=== PATIENT | female | born 1985 | race Caucasian/White ===

== ENCOUNTER → 2016-12-10 | Outpatient (CLI) | payer OTHER ==
[~2016-12-10] MED LIST: ALBU1AER9 INH; HYDR-3419 PO
[2016-12-10 15:06] LABS: URINE APPEARANCE CLOUDY (CLEAR); URINE BILIRUBIN NEG (NEG); URINE COLOR YELLOW; URINE EPITHELIAL CELL AUTO 0-5 /lpf (0-5); URINE NITRITE NEG (NEG); URINE PH 8.5 (4.5-7.5); URINE SPECIFIC GRAVITY 1.017 (1.000-1.030); UROBILINOGEN NEG (NEG)
[2016-12-10 15:12] LABS: MANUAL MICROSCOPIC REQUIRED? NO; REVIEW REQ? NO
== END | disposition home or self-care (01) ==
LOC: C.LAB1850 12:38
PROVIDERS: ATTEND Obstetrics & Gynecology
DX: R30.0 Dysuria (principal); R35.0 Frequency of micturition

== ENCOUNTER → 2017-04-24 | Outpatient (CLI) | payer BC, OTHER ==
[2017-04-24 17:35] LABS: URINE APPEARANCE CLEAR (CLEAR); URINE BILIRUBIN NEG (NEG); URINE COLOR YELLOW; URINE NITRITE NEG (NEG); URINE PH 6.5 (4.5-7.5); URINE SPECIFIC GRAVITY 1.018 (1.000-1.030); UROBILINOGEN NEG (NEG)
[2017-04-24 17:41] LABS: MANUAL MICROSCOPIC REQUIRED? NO; REVIEW REQ? NO
== END | disposition home or self-care (01) ==
LOC: C.LABSPEC 16:15
PROVIDERS: ATTEND Obstetrics & Gynecology
DX: Z34.81 Encounter for supervision of other normal pregnancy, first trimester (principal)

== ENCOUNTER → 2017-05-02 | Outpatient (CLI) | payer BC ==
[2017-05-02 16:34] LABS: BASO % 0.3 %; BASO ABS # 0.03 K/uL (0-0.2); COMPLETE YES; EOS % 1.7 %; HEMATOCRIT 39.9 % (37-47); IG% 0.3 %; LYMPH % 22.9 %; MEAN CELL VOLUME 84.4 fL (80-100); MEAN CORPUSCULAR HEMOGLOBIN 29.2 pg (25-34); MEAN CORPUSCULAR HGB CONC 34.6 g/dl (32-36); MEAN PLATELET VOLUME 9.8 fL (7.4-10.4); MONO % 7.8 %; PLATELET COUNT 215 K/uL (130-400); RED BLOOD COUNT 4.73 M/uL (4.2-5.4); WHITE BLOOD COUNT 8.73 K/uL (4.8-10.8)
[2017-05-06 01:31] LABS: CHLAMYDIA TRACH RNA*** NOT DETECTED (NOT DETECTED); GC (NEIS GONORRHOEAE)RNA** NOT DETECTED (NOT DETECTED)
== END | disposition home or self-care (01) ==
LOC: C.LAB 15:23
PROVIDERS: ATTEND Obstetrics & Gynecology
DX: Z34.81 Encounter for supervision of other normal pregnancy, first trimester (principal)

== ENCOUNTER → 2017-05-02 | Outpatient (CLI) | payer BC | END | disposition home or self-care (01) | LOC: C.PAPS 17:24 | PROVIDERS: ATTEND Obstetrics & Gynecology | DX: Z01.419 Encounter for gynecological examination (general) (routine) without abnormal findings (principal) ==

== ENCOUNTER → 2017-06-27 | Outpatient (CLI) | payer BC ==
[2017-06-27 12:22] LABS: GTGD 50 Grams
== END | disposition home or self-care (01) ==
LOC: C.LAB1850 11:31
PROVIDERS: ATTEND Obstetrics & Gynecology
DX: Z34.82 Encounter for supervision of other normal pregnancy, second trimester (principal); Z3A.00 Weeks of gestation of pregnancy not specified

== ENCOUNTER → 2017-09-26 | Outpatient (CLI) | payer BC ==
[2017-09-26 13:28] LABS: HEMATOCRIT 40.3 % (37-47); HEMOGLOBIN 13.4 g/dL (12.0-16.0)
== END | disposition home or self-care (01) ==
LOC: C.LAB1850 12:28
PROVIDERS: ATTEND Obstetrics & Gynecology
DX: Z34.83 Encounter for supervision of other normal pregnancy, third trimester (principal)

== ENCOUNTER → 2017-11-13 | Outpatient (CLI) | payer BC | END | disposition home or self-care (01) | LOC: C.LABSPEC 17:33 | PROVIDERS: ATTEND Obstetrics & Gynecology | DX: Z34.83 Encounter for supervision of other normal pregnancy, third trimester (principal); Z3A.00 Weeks of gestation of pregnancy not specified ==

== ENCOUNTER 2017-12-15 19:00 | Outpatient (CLI) | payer BC ==
[~2017-12-15] VITALS: Ht 165.1 cm; Wt 130.0 kg
[2017-12-15] MEDS ORDERED: VNTHFA/IN INH (19:48)
[2017-12-15] MEDS ORDERED: PRENTAB26 PO (19:49)
[2017-12-15] MEDS ORDERED: FLVHFA110 INH (19:49)
[2017-12-15 19:50] VITALS: Ht 165.1 cm; Wt 130.0 kg
== END 2017-12-15 20:38 | disposition home or self-care (01) ==
LOC: C.OPB 19:00 → C.LD 19:00 → C.OPB 20:38
PROVIDERS: ATTEND Obstetrics & Gynecology
DX: O48.0 Post-term pregnancy (principal); Z3A.41 41 weeks gestation of pregnancy; Z22.330 Carrier of Group B streptococcus

== ENCOUNTER 2017-12-16 07:29 | Inpatient (IN) | payer BC ==
[~2017-12-16] VITALS: Ht 165.1 cm; Wt 130.0 kg
[~2017-12-16 07:29] MED LIST changes: -ALBU1AER9 INH; +FLVHFA110 INH; -HYDR-3419 PO; +PRENTAB26 PO; +VNTHFA/IN INH
[2017-12-16] MEDS ORDERED: LACTATED RINGER'S 1000ML 1,000 ML IV PRN (08:10)
[2017-12-16] MEDS ORDERED: LACTATED RINGER'S 1000ML 1,000 ML IV SCH (08:10)
[2017-12-16] MEDS ORDERED: PENICILLIN G POTASSIUM IV 3 MU in DEXTROSE 5% 100ML 100 ML IV PRN (08:15)
[2017-12-16 08:27] LABS: HEMATOCRIT 39.2 % (37-47); HEMOGLOBIN 13.5 g/dL (12.0-16.0); MEAN CELL VOLUME 84.7 fL (80-100); MEAN CORPUSCULAR HEMOGLOBIN 29.2 pg (25-34); MEAN CORPUSCULAR HGB CONC 34.4 g/dl (32-36); PLATELET COUNT 174 K/uL (130-400); RED CELL DISTRIBUTION WIDTH CV 14.1 % (11.5-14.5); RED CELL DISTRIBUTION WIDTH SD 43.5 fL (36.4-46.3); WHITE BLOOD COUNT 13.95 K/uL (4.8-10.8)
[2017-12-16] MEDS ORDERED: PENICILLIN G POTASSIUM IV 6 MU in DEXTROSE 5% 250ML 250 ML IV ONE (08:30)
[2017-12-16 08:50] VITALS: Ht 165.1 cm; Wt 130.0 kg
[2017-12-16] MEDS ORDERED: LACTATED RINGER'S 1000ML 500 ML IV PRN (09:06)
[2017-12-16] MEDS ORDERED: OXYTOCIN 30 UNITS/500ML NSS IV PRN ×2 (09:15→15:45)
[2017-12-16] MEDS ORDERED: SUPERCREAM 0.870 % 15GM JAR EXT PRN (15:45)
[2017-12-16] MEDS ORDERED: HYDROCORTISONE ACETATE 25 MG SUPP PR PRN (15:45)
[2017-12-16] MEDS ORDERED: BENZOCAINE 20% AER SPR 82.5 GM CAN EXT PRN (15:45)
[2017-12-16] MEDS ORDERED: OXYCODONE/ACETAMINOPHEN 5-325 TAB PO PRN (15:45)
[2017-12-16] MEDS ORDERED: LANOLIN OINT EXT PRN (15:45)
--- NOTE | 2017-12-16 15:48 | Vaginal Delivery Summary ---
Vaginal Delivery Summary Vaginal delivery summary Predelivery diagnoses: 1. 32-year-old 013 at 41 weeks 3 days 2. Postdates 3. Group B strep positive 4. Rh- Postdelivery diagnoses: Same Procedure: Spontaneous vaginal delivery Estimated blood loss: 300 mL Findings: Viable male , Apgars 9 and 9. Weight pending, please see nursing records. Description of delivery: The patient presented last night for induction of labor cervical ripening with Estrada balloon. This fell out overnight, and she began justine. She presented this morning, where penicillin was infused for group B strep positive, after 4 hours beyond infusion, artificial rupture rupture of membranes was performed for meconium stained fluid. Pitocin was given to delete stimulate adequate contractions. She progressed to complete. She then began to push. She spontaneously vaginally delivered a viable male from the cephalic presentation with the head in right occiput anterior position. The head delivered followed by the anterior shoulder followed by the posterior shoulder and the body. No nuchal cord was noted, however the cord was wrapped around the baby's left foot. This was disentangled, and the baby is placed on mother's abdomen. Spontaneous cry was heard. Delayed cord clamping was employed, after 1 minute and cessation of pulse in the cord, cord was doubly clamped and cut cord blood was obtained, and the placenta was delivered spontaneously intact with three-vessel cord. Pitocin was given, the uterus and vagina were swabbed of all clots and debris, the uterus became firm, the cervix vagina and perineum were inspected and no lacerations were noted. The mother and baby tolerated delivery well and they are recovering in the room in stable and good condition. All sponge, instrument counts were correct 2 at the conclusion of the delivery.
[2017-12-16] MEDS: IBUPROFEN 600 MG TAB PO PRN ×2 (15:50→20:50)
[2017-12-16 17:15] VITALS: BP 122/81; PULSE 96; TEMP 36.8; O2SAT 97
[2017-12-16] MEDS: DOCUSATE SODIUM 100 MG CAP PO SCH (19:33)
[2017-12-16 19:35] VITALS: BP 138/78; PULSE 70; TEMP 36.9; O2SAT 97
[2017-12-17] VITALS: BP 131/85; PULSE 79; TEMP 36.6; O2SAT 98
[2017-12-17] MEDS: IBUPROFEN 600 MG TAB PO PRN ×3 (01:21→16:07)
[2017-12-17 04:20] VITALS: BP 116/75; PULSE 74; TEMP 36.4; O2SAT 99
--- NOTE | 2017-12-17 07:01 | Progress Note ---
Subjective Dec 17, 2017. Subjective conversation w/ patient, physical exam, chart review, lab review Ambulation: ambulating normally Voiding: no voiding problems Passing Gas: Yes Diet Tolerance: Regular Diet Lochia: Moderate Feeding Type: Bottle Feeding Review of Systems Constitutional: No fever, No chills Respiratory: No cough, No shortness of breath Cardiac: No chest pain Abdomen: No pain, No nausea, No vomiting Female : No dysuria Objective Vital Signs Date Time Temp Pulse Resp B/P (MAP) Pulse Ox O2 Delivery O2 Flow Rate FiO2 12/17/17 04:20 36.4 74 16 116/75 (89) 99 Room Air 12/17/17 00:00 36.6 79 18 131/85 (100) 98 Room Air 12/17/17 00:00 Room Air 12/16/17 19:35 36.9 70 20 138/78 (98) 97 Room Air 12/16/17 17:15 97 Room Air 12/16/17 17:15 36.8 96 20 122/81 (95) 97 Room Air Physical Exam General Appearance: WELL-APPEARING, WD/WN, NO APPARENT DISTRESS Respiratory/Chest: lungs clear, normal breath sounds Cardiovascular: regular rate, rhythm, no murmur Abdomen: normal bowel sounds, non tender, soft Fundus: Firm Extremities: non-tender, normal inspection, no pedal edema, no calf tenderness Laboratory Results Last 24 Hours Test 12/16/17 08:17 12/17/17 06:53 White Blood Count 13.95 K/uL Red Blood Count 4.63 M/uL Hemoglobin 13.5 g/dL Hematocrit 39.2 % Mean Corpuscular Volume 84.7 fL Mean Corpuscular Hemoglobin 29.2 pg Mean Corpuscular Hemoglobin Concent 34.4 g/dl RDW Standard Deviation 43.5 fL RDW Coefficient of Variation 14.1 % Platelet Count 174 K/uL Mean Platelet Volume 10.0 fL Medications Current Inpatient Medications Medications (Trade) Dose Ordered Sig/Kenny Route Start Time Stop Time Status Last Admin Dose Admin Lactated Ringer's 1,000 ml @ 125 mls/hr Q8H IV 12/16/17 08:10 12/18/17 08:09 12/16/17 08:20 125 MLS/HR Lactated Ringer's 500 ml @ 999 mls/hr Q31M PRN IV 12/16/17 09:06 01/15/18 09:05 Oxytocin (Pitocin IV) 30 units UD PRN IV 12/16/17 15:45 01/15/18 15:44 Benzocaine (Dermoplast Aero Spr) 1 appln PRN PRN EXT 12/16/17 15:45 01/15/18 15:44 Cocaine HCl (Supercream 0.870% Cr) BID PRN EXT 12/16/17 15:45 12/30/17 15:44 Hydrocortisone Acetate (Anusol Hc Supp) 25 mg BID PRN OR 12/16/17 15:45 01/15/18 15:44 Lanolin (Lanolin Oint) PRN PRN EXT 12/16/17 15:45 01/15/18 15:44 Ibuprofen (Motrin Tab) 600 mg Q4H PRN PO 12/16/17 15:45 01/15/18 15:44 12/17/17 01:21 600 MG Oxycodone/ Acetaminophen (Percocet 5-325mg Tab) 1 tab Q4H PRN PO 12/16/17 15:45 12/30/17 15:44 Bisacodyl (Dulcolax Tab) 5 mg 20 PO 12/17/17 20:00 12/17/17 20:01 Docusate Sodium (coLACE CAP) 100 mg BID PO 12/16/17 20:00 01/15/18 19:59 Fluticasone Propionate (Flovent Hfa 110MCG Inhaler) 2 puffs BID INH 12/17/17 08:00 01/16/18 07:59 Assessment and Plan Post- Day#: 1 Continue Routine Care: 32, f, delivered vaginally at 41.3 wk, ppd1 Pt is A-/GBS+ with appropriate abx/RI. Reviewed vital WNL--isolated elevation in BP (138/78 max). No signs or sx of anemia (EBL 300 cc). Doing well clinically. Plan; 1. Plan pp care; ambulate, control pain, monitor lochia Resident Physician Supervision Note: I interviewed and examined the patient. Discussed with Dr. Radford and agree with findings and plan as documented in the note. Any exceptions or clarifications are listed here: PPD#1, doing well. Anticipate discharge home tomorrow. Documented By: Emma Torres
[2017-12-17 07:15] LABS: HEMOGLOBIN 12.9 g/dL (12.0-16.0)
[2017-12-17] MEDS ORDERED: FLUTICASONE HFA 110MCG INHALER INH SCH ×2 (08:00)
[2017-12-17 08:55] VITALS: BP 133/85; PULSE 85; TEMP 36.9; O2SAT 98
[2017-12-17] MEDS: DOCUSATE SODIUM 100 MG CAP PO SCH (08:58)
[2017-12-17 12:00] VITALS: BP 135/85; PULSE 81; TEMP 37.2; O2SAT 98
[2017-12-17 15:55] VITALS: BP 124/81; PULSE 85; TEMP 36.7; O2SAT 97; O2SAT 98
--- NOTE | 2017-12-17 17:32 | Discharge Instructions ---
Discharge Instructions Date of Service Dec 17, 2017. Admission Reason for Admission: Induction Discharge Discharge Diagnosis / Problem: s/p vaginal delivery Discharge Goals Goal(s): Routine recovery after delivery Medications Continue Dispensed Medications: supercream, dermaplast, tucks, inhaler, lansinoh Activity Recommendations Activity Limitations: per Instructions/Follow-up section . Instructions / Follow-Up Instructions / Follow-Up ACTIVITY RECOMMENDATIONS: * Gradual return to full activity over the next 2-3 weeks. * No lifting - nothing heavier than baby over the next 2-3 weeks. * Do not engage in vigorous exercise, sexual activity or sports until cleared by your physician. * Do not drive or operate any motorized equipment until cleared by your physician. * You may shower/bathe daily. MEDICATIONS: For discomfort or pain, you may use Acetaminophen (Tylenol), Ibuprofen (Advil), or Naproxen (Aleve) following the package directions. For constipation you may use Colace following the package directions. BREAST CARE: If you are not breast feeding: * Wear a supportive bra 24 hours a day for one to two weeks. * Avoid stimulating your breasts and nipples as much as possible during the first few weeks after delivery. * When taking a shower, have the warm water hit your back, not breasts. * When your breasts feel full, apply ice packs. Usually three to four times a day helps ease the discomfort. * Take a mild pain medication (Tylenol / Motrin) when you are uncomfortable. If breast feeding: * Use breast milk to lubricate nipples. Lansinoh cream may be used for sore nipples. You do not need to remove cream prior to breast feeding. If using a different brand of cream, check the label for directions regarding removal of cream prior to nursing. * Wear a supportive bra. * If having problems with breasts or breast feeding, call a jury consultant or your health care provider. EPISIOTOMY CARE: After delivery, if you have an episiotomy (stitches), the following steps will ease discomfort and aid healing. * For the first 24 hours after delivery, place ice packs next to your episiotomy to help reduce swelling. * After the first 24 hour-period, sitz baths, either portable or in the tub, are suggested. A shower with a shower arm sprayed over the episiotomy may be comforting. * Kristal care should be done after each voiding and bowel movement. Squirt warm water from a plastic bottle over the perineum (region of the body between the anus and urinary opening) and pat dry. * Use Dermoplast to ease discomfort. Shake container. Runnells directly over the episiotomy. Place a Tucks on a clean sanitary pad next to your episiotomy. SPECIAL CARE INSTRUCTIONS: When you are discharged from the hospital, it is important for you to follow the instructions listed below: * During the first week at home, you should be able to care for yourself and your baby. In addition, the usual light household activities are encouraged. * Limit your activities to the way you feel. Do not try to clean the house or move furniture. Be sensible. * If you actively engage in sports and have done so up until the time of your delivery, you may resume these activities as soon as you feel able. This may take up to one month or even longer. Use good judgment. * Continue to take your vitamins for at least six weeks after the of your baby. * Your diet need not be limited unless you were on a special diet before your delivery. Breast-feeding mothers need around 2500 calories per day and at least 64-80 ounces of fluid per day (8 to 10 glasses). * You should eat foods from the four major food groups. Crash diets or fad diets are to be avoided. Eating lean meats, fresh fruits and vegetables, low-fat dairy products, high fiber foods and a regular exercise program, will help you get back to your pre- weight without putting your health at risk. * Constipation is sometimes a problem after delivery. Take a mild laxative as needed. If breast feeding, Milk of Magnesia is acceptable to use. You may use a suppository or Fleets enema if no episiotomy. * A daily shower or tub bath is suggested. Be sure to thoroughly and gently dry the perineum. * A bloody vaginal discharge will usually continue until around four weeks post . A small amount of bleeding may continue for as long as six weeks. Vaginal discharge changes from the bright red bleeding after delivery to pink then brownish and finally yellowish-pink before becoming white and disappearing. * Bleeding may increase with activity. Your first period may come in 4-8 weeks. If you are breast feeding, your period may be delayed even longer. * [place] (sex) can begin whenever both you and your partner feel comfortable and do not have any form of genital infection. It is recommended that you wait at least six weeks for internal and external healing to occur. If you have questions, please talk to your health care practitioner. A condom should be used to prevent infection and . * Foreplay, gentle intercourse and lubrication is very important the first several times to prevent pain. A water-based lubricant such as K-Y jelly or Astroglide may be used. * If you have RH negative blood and your baby is RH positive, you will receive RHOGAM by injection prior to discharge. The nurse will give you a card to keep with you that has the date and place that you received RHOGAM after delivery. * During your care, you had a Rubella screen done to check for the presence of rubella antibodies in your blood. If your test was negative, you will receive a Rubella vaccine prior to discharge. This vaccine may cause a fever, soreness at the injection site and flu-like symptoms. If these symptoms persist, notify your health care practitioner. is not advised for one month after a Rubella vaccine. * Verbalizes understanding of car seat law as reviewed with patient nursing. * Car Seat hand-out given and reviewed with patient by nursing. * Shaken baby information reviewed with patient by nursing. Call you doctor if: * Heavy bleeding (saturating several pads an hour) or passing clots the size of your fist. * A fever >101 degrees F (38.3 degrees C) on two occasions four hours apart and /or chills. * Unusual pain in the pelvic or vaginal areas. * "Baby Blues" lasting longer than two weeks. If you have any questions or concerns, call your health care practitioner at . FOLLOW UP VISIT: * Please call the office at to schedule a 6 week examination. It is important you keep this appointment. It is important for you to make arrangements for either yearly or twice yearly check-ups thereafter. Current Hospital Diet Patient's current hospital diet: Regular OB Diet Discharge Diet Recommended Diet: Regular Diet Pending Studies Studies pending at discharge: no Medical Emergencies . Who to Call and When: Medical Emergencies: If at any time you feel your situation is an emergency, please call 911 immediately. . Non-Emergent Contact Non-Emergency issues call your: Civil Preparedness Coordinator . . "Provider Documentation" section prepared by Brooke Pollack. .
[2017-12-17 19:07] VITALS: BP_DIAS 81; PULSE 81; TEMP 36.7
[2017-12-17] MEDS ORDERED: BISACODYL 5 MG TABEC PO SCH (20:00)
== END 2017-12-17 19:07 | disposition home or self-care (01) | DRG 775 ==
LOC: EDSTATUS 07:29 → UNDOADMIN 07:32 → C.LD 07:32 → C.OBG 17:14
PROVIDERS: ADMIT Obstetrics & Gynecology; ATTEND Obstetrics & Gynecology
PROC: 10E0XZZ Delivery of Products of Conception, External Approach (ICD-10-PCS; principal; 2017-12-16)
PROC: 3E0P7GC Introduction of Other Therapeutic Substance into Female Reproductive, Via Natural or Artificial Opening (ICD-10-PCS; 2017-12-16)
DX: O48.0 Post-term pregnancy (principal); O69.89X0 Labor and delivery complicated by other cord complications, not applicable or unspecified; O99.824 Streptococcus B carrier state complicating childbirth; O77.0 Labor and delivery complicated by meconium in amniotic fluid; Z37.0 Single live birth; Z3A.41 41 weeks gestation of pregnancy